=== PATIENT | female | born 1960 | race African-American/Black ===

== ENCOUNTER 2021-03-07 09:32 | Inpatient (IN) | payer OTHER ==
[2021-03-07 09:57] VITALS: BMI 25.6
[2021-03-07] MEDS ORDERED: SODIUM CHLORIDE 0.9% 500 ML INFUS.BAG IV ONE (13:12)
[2021-03-07] MEDS ORDERED: ONDANSETRON 4 MG/2 ML VIAL IVPUSH ONE (13:12)
[2021-03-07] MEDS ORDERED: ONDANSETRON 4 MG/2 ML VIAL ONE (13:53)
[2021-03-07] MEDS ORDERED: AMPICILLIN NA/SULBACTAM NA 3 GM in SODIUM CHLORIDE 100 ML IVPB ONE (14:27)
[2021-03-07 14:47] LABS: BASO % 0.4 % (0-2.0); EOS % 0.2 % (0-4.5); HEMATOCRIT 43.1 % (32.4-45.2); HEMOGLOBIN 14.1 GM/dL (10.7-15.3); LYMPH % 21.7 % (8-40); MCH 27.9 pg (25.7-33.7); MCHC 32.8 g/dl (32.0-36.0); MEAN CELL VOLUME 85.1 fl (80-96); MEAN PLT VOLUME 8.5 fl (7.5-11.1); MONO % 7.2 % (3.8-10.2); NEUT % 70.5 % (42.8-82.8); PLATELET COUNT 258 10^3/uL (134-434); RBC 5.07 M/mm3 (3.60-5.2); RDW 14.6 % (11.6-15.6); WHITE BLOOD COUNT 7.2 K/mm3 (4.0-10.0)
[2021-03-07 15:04] LABS: CHLORIDE 104 mmol/L (98-107); SODIUM 143 mmol/L (136-145)
[2021-03-07 15:06] LABS: CALCIUM 10.2 mg/dL (8.5-10.1); GLUCOSE,RANDOM 114 mg/dL (74-106)
[2021-03-07 15:07] LABS: ANION GAP 10 MMOL/L (8-16); BLOOD UREA NITROGEN 21.9 mg/dL (7-18); CO2 29 mmol/L (21-32)
[2021-03-07 15:10] LABS: CREATININE 1.1 mg/dL (0.55-1.3); SGOT/AST 20 U/L (15-37); SGPT/ALT 17 U/L (13-61)
[2021-03-07 15:11] LABS: BILIRUBIN,TOTAL 0.7 mg/dL (0.2-1); TOT PROT 8.3 g/dl (6.4-8.2)
[2021-03-07 15:12] LABS: ALK PHOS 118 U/L (45-117)
[2021-03-08] MEDS: AMPICILLIN NA/SULBACTAM NA 3 GM in SODIUM CHLORIDE 100 ML IVPB SCH ×3 (02:42→19:37)
[2021-03-08] MEDS: DEXTROSE 5%-0.45% SALINE 1,000 ML IV SCH (05:15)
[2021-03-08 09:15] LABS: CHLORIDE 106 mmol/L (98-107); SODIUM 144 mmol/L (136-145)
[2021-03-08 09:21] LABS: ANION GAP 7 MMOL/L (8-16); BLOOD UREA NITROGEN 16.8 mg/dL (7-18); CALCIUM 9.3 mg/dL (8.5-10.1); CO2 30 mmol/L (21-32)
[2021-03-08 09:22] LABS: GLUCOSE,RANDOM 113 mg/dL (74-106); MAGNESIUM 2.2 mg/dL (1.8-2.4)
[2021-03-08 09:24] LABS: SGOT/AST 15 U/L (15-37); SGPT/ALT 15 U/L (13-61)
[2021-03-08 09:25] LABS: BILIRUBIN,TOTAL 0.5 mg/dL (0.2-1); CHOLESTEROL 170 mg/dL (50-200); CREATININE 0.8 mg/dL (0.55-1.3); LDL CHOLESTEROL (ONLY SJRH) 108 mg/dL (5-100); TRIGLYCERIDES 65 mg/dL (0-150)
[2021-03-08 09:26] LABS: TOT PROT 6.7 g/dl (6.4-8.2)
[2021-03-08 09:27] LABS: ALK PHOS 95 U/L (45-117); HDL CHOLESTEROL 42 mg/dL (40-60); N-TERMINAL BNP 8.3 pg/ml (5-125)
[2021-03-08 09:34] LABS: ALBUMIN 3.2 g/dl (3.4-5.0)
[2021-03-08] MEDS: ENOXAPARIN NA (PORCINE) 40 MG/0.4 ML DISP.SYRIN SQ SCH (10:06)
[2021-03-08 10:19] LABS: BASO % 0.8 % (0-2.0); EOS % 0.7 % (0-4.5); HEMATOCRIT 39.5 % (32.4-45.2); HEMOGLOBIN 12.7 GM/dL (10.7-15.3); LYMPH % 24.9 % (8-40); MCH 27.4 pg (25.7-33.7); MCHC 32.1 g/dl (32.0-36.0); MEAN CELL VOLUME 85.5 fl (80-96); MEAN PLT VOLUME 8.3 fl (7.5-11.1); MONO % 9.5 % (3.8-10.2); NEUT % 64.1 % (42.8-82.8); PLATELET COUNT 238 10^3/uL (134-434); RBC 4.62 M/mm3 (3.60-5.2); RDW 14.5 % (11.6-15.6); WHITE BLOOD COUNT 6.1 K/mm3 (4.0-10.0)
[2021-03-09] MEDS: DEXTROSE 5%-0.45% SALINE 1,000 ML IV SCH (02:23)
[2021-03-09] MEDS ORDERED: AMPICILLIN NA/SULBACTAM NA 3 GM VIAL ONE ×3 (02:54→15:42)
[2021-03-09] MEDS ORDERED: SODIUM CHLORIDE 100 ML IVPB ONE ×3 (02:54→15:42)
[2021-03-09] MEDS: AMPICILLIN NA/SULBACTAM NA 3 GM in SODIUM CHLORIDE 100 ML IVPB SCH ×3 (02:58→17:29)
[2021-03-09] MEDS ORDERED: ONDANSETRON 4 MG/2 ML VIAL IVPUSH PRN (07:47)
[2021-03-09] MEDS: ENOXAPARIN NA (PORCINE) 40 MG/0.4 ML DISP.SYRIN SQ SCH (10:16)
[2021-03-10] MEDS ORDERED: AMPICILLIN NA/SULBACTAM NA 3 GM VIAL ONE ×3 (01:26→17:11)
[2021-03-10] MEDS ORDERED: SODIUM CHLORIDE 100 ML IVPB ONE ×3 (01:26→17:11)
[2021-03-10] MEDS: DEXTROSE 5%-0.45% SALINE 1,000 ML IV SCH ×2 (01:40→21:21)
[2021-03-10] MEDS: AMPICILLIN NA/SULBACTAM NA 3 GM in SODIUM CHLORIDE 100 ML IVPB SCH ×3 (01:41→17:31)
[2021-03-10] MEDS: ENOXAPARIN NA (PORCINE) 40 MG/0.4 ML DISP.SYRIN SQ SCH (10:26)
[2021-03-11] MEDS ORDERED: SODIUM CHLORIDE 100 ML IVPB ONE ×2 (01:03→10:43)
[2021-03-11] MEDS ORDERED: AMPICILLIN NA/SULBACTAM NA 3 GM VIAL ONE ×2 (01:03→10:43)
[2021-03-11] MEDS: AMPICILLIN NA/SULBACTAM NA 3 GM in SODIUM CHLORIDE 100 ML IVPB SCH ×2 (01:15→10:47)
[2021-03-11] MEDS: ENOXAPARIN NA (PORCINE) 40 MG/0.4 ML DISP.SYRIN SQ SCH (10:47)
[2021-03-11] MEDS: DEXTROSE 5%-0.45% SALINE 1,000 ML IV SCH (10:49)
[2021-03-11 15:12] VITALS: BP 150/84; PULSE 81; TEMP 97.6
== END 2021-03-11 15:41 | disposition home or self-care (01) | DRG 603 ==
LOC: JER 09:32 → JERBED 16:23 → J7W 03-09 02:43
PROVIDERS: ADMIT Internal Medicine; ATTEND Internal Medicine
DX: L03.90 Cellulitis, unspecified (principal); S81.852A Open bite, left lower leg, initial encounter; R11.2 Nausea with vomiting, unspecified; E78.5 Hyperlipidemia, unspecified; E87.6 Hypokalemia; R00.0 Tachycardia, unspecified; W55.01XA Bitten by cat, initial encounter; Y93.9 Activity, unspecified; Y92.9 Unspecified place or not applicable; E86.0 Dehydration
CPT/HCPCS: 36415; 71046-TC-FY; 80053; 80061; 82550; 82553; 83036; 83735; 83880; 84443; 84484; 85025; 93005; 93010; 93306-TC; 99285-25; C9803; U0003; U0005